=== PATIENT | male | born 1995 | race Caucasian/White ===

== ENCOUNTER 2018-11-13 19:51 | Emergency (ER) | payer MEDICAID ==
[2018-11-13 20:07] VITALS: BP 147/80; PULSE 69; RESP 18; TEMP 98.5; O2SAT 100
--- NOTE | 2018-11-13 20:30 | C.PDOC ---
History Of Present Illness 23 years old male presents to ED for evaluation of vertigo dizziness associated with headache that began yesterday. Patient describes symptoms are intermittent and worse with position change. Denies nausea, vomiting, or upper respiratory illness. Patient states he had an unsteady gait but he is now asymptomatic. VERTIGO DIZZY SINCE YEST. INTERMIT WORSE W POSITION CHANGE. +BALLARD. NO NV, URI. PS HAD UNSTEADY GAIT BUT NOW ASYMPT EXAM NAD HEENT NEG GAIT WNL NEURO NO FOCAL DEF Time Seen by Provider: 11/13/18 20:10 Chief Complaint (Nursing): Dizziness/Lightheaded History Per: Patient History/Exam Limitations: no limitations Onset/Duration Of Symptoms: Hrs, Intermittent Episodes Current Symptoms Are (Timing): Still Present Recent travel outside of the [place]: No Past Medical History Reviewed: Historical Data, Nursing Documentation, Vital Signs Vital Signs: Last Vital Signs Temp 98.5 F 11/13/18 20:04 Pulse 69 11/13/18 20:04 Resp 18 11/13/18 20:04 BP 147/80 11/13/18 20:04 Pulse Ox 100 11/13/18 20:04 - Medical History PMH: No Chronic Diseases Family History: States: No Known Family Hx - Social History Hx Alcohol Use: Yes Hx Substance Use: Yes - Immunization History Hx Tetanus Toxoid Vaccination: No Hx Influenza Vaccination: No Hx Pneumococcal Vaccination: No Review Of Systems Constitutional: Negative for: Fever, Chills Gastrointestinal: Negative for: Nausea, Vomiting Skin: Negative for: Rash Neurological: Positive for: Headache, Dizziness (Vertigo dizziness ). Negative for: Weakness, Numbness Physical Exam - Physical Exam Appears: Non-toxic, No Acute Distress Skin: Warm, Dry, No Rash Head: Atraumatic, Normacephalic Eye(s): bilateral: Normal Inspection, PERRL, EOMI Oral Mucosa: Moist Neck: Normal ROM, Supple Chest: Symmetrical, No Tenderness Cardiovascular: Rhythm Regular, No Murmur Respiratory: Normal Breath Sounds, No Rales, No Rhonchi, No Wheezing, Other (NARD) Extremity: Normal ROM Extremity: Bilateral: Atraumatic, No Pedal Edema, Normal Color And Temperature Pulses: Left Radial: Normal, Right Radial: Normal Neurological/Psych: Oriented x3, Normal Speech, Normal Motor, Normal Sensation, Normal Reflexes, Other (No focal deficits ) Gait: Steady ED Course And Treatment O2 Sat by Pulse Oximetry: 100 (RA) Pulse Ox Interpretation: Normal Medical Decision Making Medical Decision Making: Plan: * Antivert Progress: Upon re-evaluation patient states she currently feels better and is not requesting further treatments at this time. Care instructions advised and patient is in agreement. Patient is currently stable for discharge and will be discharged. Return if symptoms persist or worsen. Disposition Counseled Patient/Family Regarding: Diagnosis, Need For Followup, Rx Given - Disposition Referrals: Non [facility] Provider, [Primary Care Provider] - Disposition: HOME/ ROUTINE Disposition Time: 20:29 Condition: IMPROVED Prescriptions: Meclizine [Antivert] 50 mg PO TID PRN #21 tab PRN Reason: Dizziness Instructions: Vertigo (a Type of Dizziness) (DC) Forms: [facility] (Yoruba), Work Excuse - Clinical Impression Clinical Impression: Vertigo - Scribe Statement The provider has reviewed the documentation as recorded by the Scribe Angela Moreira All medical record entries made by the Scribe were at my direction and personally dictated by me. I have reviewed the chart and agree that the record accurately reflects my personal performance of the history, physical exam, medical decision making, and the department course for this patient. I have also personally directed, reviewed, and agree with the discharge instructions and disposition.
== END 2018-11-13 20:40 | disposition home or self-care (01) ==
LOC: C.ER 19:51 → SUPCPDRO 19:51 → C.ER 20:40
DX: R42 Dizziness and giddiness (principal)